=== PATIENT | female | born 1995 | race Caucasian/White ===

== ENCOUNTER 2018-02-18 01:20 | Inpatient (IN) | payer SELFPAY, OTHER ==
--- NOTE | 2018-02-18 | PLAC_PTH ---
PATIENT: KIMBERLEE HOOD LOC: WP U#:[id number] AGE/SX: 22/F ROOM: WP001 RE02/18/[address]: Dr. Bernadine Valencia MD : 1995 BED: 1 DIS: 02/18/2018 SPEC #: [id number] RECD: 02/18/18 13:14 STATUS: YULI RENorris #: [id number] PRESTON: 02/18/18 00:[address]: Bernadine Valencia DEPT: SURGICAL PATHOLOGY RECD BY: Samuel Calhoun ENTERED: 02/18/18 13:15 SP TYPE: PLACENTA OTHR DR: Dr. Hernando Matthew MD Tissues: Placenta, NOS Procedures: Surgery Specimen Level V HEADER OPERATION: Vaginal delivery PRE-OP DIAGNOSIS: delivery xple whitish; nodules (infarcts?/succenturiate lobe, 25% abrupt? TISSUE SUBMITTED: Placenta MICROSCOPIC DIAGNOSIS Espinal placenta (354 gm): Umbilical cord ? trivascular with no inflammation. Placental membranes ? no pathologic change. Placental disc (including succenturiate lobe) ? multiple remote infarcts, increased intraparenchymal fibrin plaques and focal organizing hemorrhage. AM:amando 02/19/18 AM:amando 02/20/18 MICROSCOPIC DESCRIPTION Slides are reviewed. GROSS DESCRIPTION SPECIMEN: PLACENTA / CLINICAL INFORMATION: A. Weight: 2.259 kg B. Gestational Age: 35 weeks C. Sex: Male PLACENTAL WEIGHT (POST FIXATION): 354 gm PLACENTAL DIMENSIONS: 21 x 13 x 2.5 cm PLACENTAL SHAPE: Ovoid with succneturiate lobe. PLACENTAL WEIGHT FOR GESTATIONAL AGE: Within 10-99th percentile MEMBRANES - Present A. Insertion: Marginal B. Site of rupture from edge: 6 cm from edge of placental disc C. Color of membrane: Sun-parra D. Abnormalities: None UMBILICAL CORD - Present A. Color: Sun-parra B. Insertion: Eccentric C. Length: 23 cm D. Diameter: 1.2 cm E. Number of vessels: Three F. Abnormalities: None PLACENTAL DISC ? Present and includes succenturiate lobe measuring 7.2 x 6.5 x 1.3 cm. A. Color of surface: Sun-parra B. surface abnormalities: None C. Maternal cotyledons: Intact with minimal tears D. Attached retro placental clot: No clot E. Cut surface: Dark red and spongy F. Lesions: Serial sections reveal multiple (greater than 15) sun-white plaque-like lesions ranging in size from 0.8 to 3 cm in greatest dimension. G. Separate clot: Absent SECTIONS SUBMITTED: 1. Membrane roll and umbilical cord ( end inked) 2. Placental disc, and maternal surfaces 3. Placental disc, and maternal surfaces 4. Placental disc, and maternal surfaces AM: 02/18/18 TC:5 AM: 02/20/18 CPT: 98552
--- NOTE | 2018-02-18 | PLAC_PTH ---
PATIENT: KIMBERLEE HOOD LOC: WP U#:[id number] AGE/SX: 22/F ROOM: WP001 RE02/18/[address]: Dr. Bernadine Valencia MD : 1995 BED: 1 DIS: 02/18/2018 SPEC #: [id number] RECD: 02/18/18 13:14 STATUS: YULI RENorris #: [id number] PRESTON: 02/18/18 00:[address]: Bernadine Valencia DEPT: SURGICAL PATHOLOGY RECD BY: Samuel Calhoun ENTERED: 02/18/18 13:15 SP TYPE: PLACENTA OTHR DR: Dr. Hernando Matthew MD Tissues: Placenta, NOS Procedures: Surgery Specimen Level V HEADER OPERATION: Vaginal delivery PRE-OP DIAGNOSIS: delivery xple whitish; nodules (infarcts?/succenturiate lobe, 25% abrupt? TISSUE SUBMITTED: Placenta MICROSCOPIC DIAGNOSIS Espinal placenta (354 gm): Umbilical cord ? trivascular with no inflammation. Placental membranes ? no pathologic change. Placental disc ? multiple remote infarcts, increased intraparenchymal fibrin plaques and focal organizing hemorrhage. AM:amando 02/19/18 MICROSCOPIC DESCRIPTION Slides are reviewed. GROSS DESCRIPTION SPECIMEN: PLACENTA / CLINICAL INFORMATION: A. Weight: 2.259 kg B. Gestational Age: 35 weeks C. Sex: Male PLACENTAL WEIGHT (POST FIXATION): 354 gm PLACENTAL DIMENSIONS: 21 x 13 x 2.5 cm PLACENTAL SHAPE: Usual ovoid PLACENTAL WEIGHT FOR GESTATIONAL AGE: Within 10-99th percentile MEMBRANES - Present A. Insertion: Marginal B. Site of rupture from edge: 6 cm from edge of placental disc C. Color of membrane: Sun-parra D. Abnormalities: None UMBILICAL CORD - Present A. Color: Sun-parra B. Insertion: Eccentric C. Length: 23 cm D. Diameter: 1.2 cm E. Number of vessels: Three F. Abnormalities: None PLACENTAL DISC - Present A. Color of surface: Sun-parra B. surface abnormalities: None C. Maternal cotyledons: Intact with minimal tears D. Attached retro placental clot: No clot E. Cut surface: Dark red and spongy F. Lesions: Serial sections reveal multiple (greater than 15) sun-white plaque-like lesions ranging in size from 0.8 to 3 cm in greatest dimension. G. Separate clot: Absent SECTIONS SUBMITTED: 1. Membrane roll and umbilical cord ( end notched) 2. Placental disc, and maternal surfaces 3. Placental disc, and maternal surfaces 4. Placental disc, and maternal surfaces AM:amando 02/18/18 TC:5 CPT: 94333
[2018-02-18 01:29] VITALS: BMI 23.6
[2018-02-18] MEDS: Oxytocin 30 units/NS 500 ml 30 UNITS/500 ML IV.SOLN 999 UNITS IV (01:45)
[2018-02-18] MEDS: miSOPROStol 200 MCG Tablet 800 MCG RECTAL (01:54)
[2018-02-18] MEDS: Oxytocin 30 units/NS 500 ml 30 UNITS/500 ML IV.SOLN 125 UNITS IV (02:15)
--- NOTE | 2018-02-18 02:48 | PCM.OB.VAG ---
- Problem List (1) labor in third trimester with delivery Status: Acute (2) Limited care, antepartum Status: Acute Vaginal Delivery Maternal Presentation: Active Labor EGA 35.3 wks by 14 wks U/S per her own report. Patient unknown to me was receiving care with insurance examining clerk, but started having contractions at 9pm last night. Was asked to come in here because of gestational age of 35.3 wks. Amniotic Membrane Rupture Type: Spontaneous Amniotic Fluid Description: Clear Final JOSH Source: US >20 weeks Gestational age: 35.3 doctor who attended delivery (if requested by OB): Fransisco Romero Surgery/ Procedure Performed: Spontaneous Vaginal Delivery Type of Anesthesia: None Presentation: Vertex Placental Delivery Description: Spontaneous Placenta Disposition: Routine to Lab Percentage of Placenta Abruption: 25 - multiple whitish nodules, succenturiate lobe Cord Vessel Description: 3 Vessels Cord Entanglement: None Estimated Blood Loss: 300 (1 minute): 8 (5 minute): 9 Episiotomy Description: None Laceration: Left Mediolateral, 1st degree Medications given after delivery: IV Pitocin, - - Rectal cytotec
[2018-02-18 03:02] LABS: Bacteria 0 SEEN /hpf (None Seen); Mucous, Urine 0 SEEN /hpf (<or=2+); White Blood Cells 0 SEEN /hpf (0-5)
[2018-02-18 03:11] LABS: Absolute Lymphocyte Count 1.31 X10^3/ul (0.83-4.51); Absolute Neutrophil Count 7.5 X10^3/uL (2.0-7.7); Basophil# 0.01 X10^3/uL; Basophil% 0.1 % (0-1); Eosinophil# 0.01 X10^3/uL; Eosinophils% 0.1 % (0-5); Hematocrit 36.3 % (37-47); Hemoglobin 12.4 g/dl (12.0-15.0); Lymphocyte # 1.31 X10^3/ul (4.0); Lymphocyte % 14.1 % (19-41); Mean Corp Hgb Conc 34.2 g/gl (32-36); Mean Corpuscular Hgb 30.8 pg (27.0-32.0); Mean Corpuscular Volume 90.3 fL (81-99); Mean Platelet Vol. 9.1 fl (6.2-12.0); Monocyte# 0.47 X10^3/uL; Neutrophil # 7.51 X10^3/uL (2.7-7.7); Neutrophil % 80.6 % (47-70); Platelet Count 143 K/mm3 (150-450); RBC Distribution Width CV 12.3 % (11.6-14.6); RBC Distribution Width SD 40.7 fl (35.1-43.9); Red Blood Count 4.02 M/mm3 (4.2-5.4); White Blood Count 9.3 K/mm3 (4.4-11.0)
[2018-02-18 03:12] LABS: Color, Urine Yellow (Yellow); Glucose, Dipstick Normal (Normal); Leukocyte Esterase-Dipstick Negative /ul (Negative); Nitrite-Dipstick Negative (Negative); Occult Blood-Urine 150 /ul (Negative); Protein-Dipstick Negative (Negative); Specific Gravity, Urine 1.015 (1.002-1.030); Urine Bilirubin Dipstick Negative (Negative); Urine Clarity Clear (Clear); Urine Urobilinogen Normal (Normal)
[2018-02-18 03:14] LABS: POSITIVE COUNT NO; POSITIVE DIFFERENTIAL NO; POSITIVE MORPHOLOGY NO
--- NOTE | 2018-02-18 03:14 | PCM.HPOB.BLA ---
- Problem List (1) labor in third trimester with delivery Status: Acute (2) Limited care, antepartum Status: Acute History and Physical Date of Admission: 02/18/18 with estimated gestational age of 35-1/2 weeks, previously unknown to me, presented today to [facility] at the recommendation of her picker tender helper Ms. Michaud because she was in labor. Contractions started at 9pm last night. On arrival the patient was 6 cm dilated with contractions every 2-3 minutes even though she claims they have been every 8 to 10 minutes. Her membranes were intact and I was notified at approximately 1 :30 a.m. I arrived at 1:43 AM a couple of minutes after the baby had delivered spontaneously once her membranes ruptured. Due to the precipitate delivery there was no opportunity to give IV penicillin as planned. Past medical history: Not significant except for onset of right lower quadrant 4 days ago which the patient decided was from appendicitis and she drank various teas including Parsley, [place], and red raspberry leaf. The pain then resolved. Social and family history: She is and [place], denies tobacco or alcohol use. Allergies: None Medications: vitamins Obstetric history: Her first ended in the delivery of an almost 7 pound female without complications at 37-1/2 weeks. She has been seeing the picker tender helper for this . Apparently the has been uneventful until several days ago. She did not bring in her care sheet even though she does have this at home and we have asked her to please bring it in as soon as possible. ROS: negative for , GI symptoms or malaise. Physical exam shows a young thin, pale white female in no acute distress. At this time she has delivered but the placenta is in situ. She is alert and oriented ?3 and cooperative. HEENT is normal. she has a full set of false teeth. Cardiovascular system: regular rate and rhythm without murmurs Lungs are clear. Abdomen: fundus is at the umbilicus initially, and following delivery of the placenta is 2 cm below. Perineum showed 2 first-degree lacerations near the introitus which were repaired with #3-0 Vicryl. Extremities are nontender without edema. Impression 1 active pre-term labor s/p Precipitate delivery 2. Precipitates delivery Plan: Supportive care. Pediatrics was present for the delivery and to help transition the baby.
[2018-02-18 03:40] LABS: Ketone-Dipstick 150 mg/dl (Negative); Red Blood Cells-Urine 0-5 SEEN /hpf (0-5); Squamous Epithelial Cells - UA 0-5 SEEN /hpf (5-10)
[2018-02-18] MEDS: Ibuprofen 600 MG Tablet PO (04:38)
[2018-02-18 04:42] LABS: HIV - WCH Non-Reactive (Nonreactive)
[2018-02-18 06:52] LABS: Pathology Specimen OB SEE PATHOLOGY REPORT
[2018-02-18 08:08] VITALS: BP 111/57; PULSE 88; RESP 16; TEMP 37.4; O2SAT 98
[2018-02-18 10:03] LABS: Rubella IgG 31.7 IU/mL
[2018-02-18 13:32] VITALS: BP 122/58; PULSE 71; RESP 16; TEMP 36.4; O2SAT 98
[2018-02-18 17:55] VITALS: BP 124/73; PULSE 85; RESP 16; TEMP 36.4; O2SAT 98
--- NOTE | 2018-02-18 20:25 | ONC.PHONE ---
Pt discharged by previous RN, infant being transferred out of hospital. Ride arrived at this time, took pt out in wheelchair. Pt had discharge instructions and denies any questions or concerns.
[2018-02-20 09:54] LABS: HEPATITIS B SURFACE AG Negative (Negative)
== END 2018-02-18 20:25 | disposition home or self-care (01) | DRG 775 ==
PROVIDERS: Admitting Provider Obstetrics & Gynecology Gynecology; Family Provider Family Medicine; PCP Family Medicine; Visit Provider Obstetrics & Gynecology Gynecology
DX: O60.14X0 Preterm labor third trimester with preterm delivery third trimester, not applicable or unspecified (principal); O43.193 Other malformation of placenta, third trimester; O62.3 Precipitate labor; O70.0 First degree perineal laceration during delivery; Z3A.35 35 weeks gestation of pregnancy; Z37.0 Single live birth
CPT/HCPCS: 59050; 81001; 85025; 86703; 86762; 86850; 86900; 87340; 88307; 99218; G0378